=== PATIENT | female | born 1945 | race Caucasian/White ===

== ENCOUNTER 2017-12-05 09:09 | Outpatient (CLI) | payer MEDICARE, BC ==
--- NOTE | 2017-12-05 18:49 | HP ---
DATE OF SERVICE: 12/05/2017. HISTORY OF PRESENT ILLNESS: Ms. Carmela Hatfield is a very pleasant 72-year-old, who [facility] a lesion of the right hip. The patient states that the right hip lesion has been present since 11/07/2017. The patient states that she was admitted to the hospital for [facility] on 11/06/2017. She states that the following day she noted the presence of a "pimple" over he r right hip which had "a hole in the middle of it." The patient states that she had been receiving a ntibiotics for pneumonia since 10/18/2017. She states that when she was discharged from the hospital , she finished courses of 2 different antibiotics as prescribed. She states that she was then placed on a 10-day course of clindamycin by her primary care physician, Dr. Schuster. The patient states that s he was seen by Dr. Schuster on 11/26/2017 for a followup visit after her discharge from the hospital for p ruddyia. At this time, the patient was referred to [facility] for further evaluation and devon tment of the right hip lesion. The patient states that the lesion has markedly improved in its appea vicki after she began leaving the lesion open to air. PAST MEDICAL HISTORY: 1. Atrial fibrillation. 2. Diabetes mellitus. 3. History of chronic kidney disease. 4. Osteoarthritis. 5. Hypothyroidism. 6. Chronic obstructive pulmonary disease. PAST SURGICAL HISTORY: 1. Left knee replacement. 2. Right knee replacement. 3. Left ankle fusion. 4. Neck surgery. 5. Left shoulder surgery. MEDICATIONS: 1. Eliquis. 2. Colchicine. 3. Cardizem. 4. Lasix. 5. Crestor. 6. Zanaflex. 7. Diovan. 8. Mirapex. 9. Metformin. 10. Restasis. 11. Symbicort. 12. Albuterol. ALLERGIES: GABAPENTIN, ADHESIVES. SOCIAL HISTORY: Social history is significant for tobacco use of up to 2 packs of cigarettes per day for 18 years. The patient states she stopped smoking in 2005. The patient denies any history of ET OH use. FAMILY HISTORY: Family history is significant for coronary artery disease. The patient states that her mother was diagnosed with coronary artery disease. Family history is negative for diabetes ingrid malone. PHYSICAL EXAMINATION: VITAL SIGNS: Temperature 97.3, pulse 88, respirations 20, blood pressure 154/70. Accu-Chek 130. GENERAL: A 72-year-old female sitting on table in examination room in no acute distress. HEENT: Normocephalic, atraumatic. NECK: No nuchal rigidity. CHEST: Clear to auscultation. CARDIAC: Regular rate and rhythm. ABDOMEN: Soft. EXTREMITIES: A lesion of the right hip is present, which measures approximately 1.2 x 0.5 cm. No op en wound is present on exam today. Erythema of the skin surrounding the lesion is present, which is resolving. No maceration of the skin of the periwound is noted. ASSESSMENT AND PLAN: 1. Right hip lesion as described above. The erythema surrounding the lesion is resolving, and the p atient has been reassured that no open wound of the right hip is present. No dressing changes or ant ibiotics will be prescribed today. The patient understands and is in agreement with the preceding tr eatment plan. Ms. Hatfield will be discharged from clinic today with followup on a p.r.n. basis. The p atient has been instructed to continue to keep the right hip lesion clean and dry. 2. Atrial fibrillation. 3. Diabetes mellitus. The patient's Accu-Chek in clinic today is 130. 4. History of chronic kidney disease. 5. Osteoarthritis. 6. Hypothyroidism. 7. Chronic obstructive pulmonary disease.
== END 2017-12-05 09:10 | disposition home or self-care (01) ==
LOC: WCC 09:09
PROVIDERS: ATTEND Family Medicine
DX: L98.9 Disorder of the skin and subcutaneous tissue, unspecified (principal); I48.91 Unspecified atrial fibrillation; E11.22 Type 2 diabetes mellitus with diabetic chronic kidney disease; N18.9 Chronic kidney disease, unspecified; M19.90 Unspecified osteoarthritis, unspecified site; E03.9 Hypothyroidism, unspecified; J44.9 Chronic obstructive pulmonary disease, unspecified
CPT/HCPCS: 82962; 97139; G0463; 36416; 99203

== ENCOUNTER 2018-07-05 16:53 | Emergency (ER) | payer MEDICARE, BC ==
[2018-07-05 17:36] LABS: #Basophils 0.1 thou/uL (0.0-0.2); #Eosinphils 0.2 thou/uL (0.0-0.7); #Lymphocytes 1.4 thou/uL (1.20-3.40); #Monocytes 0.5 thou/uL (0.11-0.59); #Neutrophils 1.9 thou/uL (1.40-6.50); %Basophils 1.5 % (0.0-1.0); %Eosinophils 4.5 % (0.0-10.0); %Lymphocytes 34.6 % (21.0-51.0); %Monocytes 11.5 % (0.0-10.0); %Neutrophils 47.9 % (42.0-75.0); Hemoglobin 13.6 g/dL (12.0-16.0); Mean Corpuscular HGB CONC 34.7 g/dL (32.0-36.0); Mean Corpuscular Hemoglobin 30.4 pg (27.0-31.0); Mean Corpuscular Volume 87.7 fL (78.0-98.0); Platelet Count 144 thou/uL (130-400); RBC Distribution Width 12.6 % (11.5-14.5); Red Blood Cell (RBC) Count 4.46 mill/uL (4.20-5.40)
[2018-07-05 17:45] LABS: Anion Gap 16 mmol/L (10-20); BUN (Urea Nitrogen) 33 mg/dL (9.8-20.1); Calc. Creatinine Clearance 0 mL/min (70-130); Calcium 10.2 mg/dL (7.8-10.44); Carbon Dioxide 26 mmol/L (23-31); Chloride 101 mmol/L (98-107); Estimated GFR-MDRD 58; Glucose 118 mg/dL (83-110); Potassium 4.1 mmol/L (3.5-5.1); Sodium 139 mmol/L (136-145)
--- NOTE | 2018-07-05 18:47 | ULT ---
BILATERAL LOWER EXTREMITY VENOUS DOPPLER WITH SPECTRAL ANALYSIS AND COLOR FLOW EVALUATION: 07/05/18 HISTORY: Bilateral lower extremity redness and swelling. FINDINGS: Powell scale, color flow, doppler evaluation with spectral analysis of the bilateral lower extremity ve nous structures is performed with 2D imaging. The bilateral lower extremity, common femoral, superfic ial femoral, popliteal, posterior tibial, most proximal greater saphenous and profunda femoral veins are imaged. There is normal lumen compressibility, flow, and augmentation in the visualized deep venous structure s of the bilateral lower extremities. There is subcutaneous edema seen in the distal lower extremiti es bilaterally. IMPRESSION: 1. No evidence of a DVT involving the visualized deep venous structures of bilateral lower extre mities. 2. Subcutaneous edema distal bilateral lower extremities. POS: [facility]
== END 2018-07-05 18:50 | disposition home or self-care (01) ==
LOC: SCSER 16:53
DX: R60.0 Localized edema (principal); I48.91 Unspecified atrial fibrillation; E11.9 Type 2 diabetes mellitus without complications; E78.5 Hyperlipidemia, unspecified; I10 Essential (primary) hypertension; E66.9 Obesity, unspecified; J45.909 Unspecified asthma, uncomplicated; M10.9 Gout, unspecified
CPT/HCPCS: 36415; 80048; 85025; 93970

== ENCOUNTER 2020-08-05 11:36 | Outpatient (CLI) | payer MEDICARE, BC ==
--- NOTE | 2020-08-05 13:04 | MRI ---
MRI of thecervical spine: 08/05/2020 COMPARISON:None available HISTORY:History of neck surgery, neck pain and shoulder pain TECHNIQUE: Multiplanar multisequence MR imaging of thecervical spine without contrast Findings:Hardware artifact associated with prior anterior discectomy and fusion noted at C5-6 and C6- 7. There is degenerative change at the atlantoaxial interspace. C2-3: Mild disc bulge with no significant central canal stenosis. Moderate left neural foraminal sten osis on the basis of facet and uncovertebral osteophyte formation. No right neural foraminal stenosis. C3-4: There is disc space narrowing with degenerative endplate change. A disc osteophyte complex is p resent which effaces the ventral thecal sac and abuts the ventral aspect of the cord with moderate/severe central canal stenosis. Mild right neural foraminal stenosis and moderate/severe left neural foraminal stenosis noted with left-sided facet and uncovertebral osteophyte formation. C4-5: There is disc space narrowing with disc desiccation and mild disc bulge partially effacing the ventral thecal sac and leading to mild to central canal stenosis. Mild bilateral neural foraminal stenosis. C5-6: There is disc space narrowing with a disc osteophyte complex. There is no significant central c anal stenosis. Facet and uncovertebral osteophyte formation leads to moderate bilateral neural foraminal stenosis, right greater than left. C6-7: No central canal stenosis. Moderate left neural foraminal stenosis on the basis of facet and un covertebral osteophyte formation. No significant right neural foraminal stenosis. Posterior to the C6-7 interspace there is a tiny focus of decreased signal intensity within the ventr al aspect of the thecal sac which may signify artifact on the basis of postoperative change. C7-T1: Bilateral facet hypertrophy. Mild bilateral neural foraminal stenosis, right greater than left . No central canal stenosis. No focal area of abnormal signal intensity within the cervical cord. IMPRESSION:Degenerative and postoperative changes within the cervical spine as detailed above. Most s ignificant degenerative changes are noted at the C3-4 level, and to a lesser degree, the C4-5 level.
--- NOTE | 2020-08-05 13:11 | MRI ---
MRI LUMBAR SPINE NONCONTRAST: HISTORY: Low back pain. Right back pain, right ankle pain. COMPARISON: None. FINDINGS: Overall there is appropriate T1 marrow signal intensity of the lumbar vertebrae. Lumbar spine vertebr al body heights are maintained. There is no fracture. There are type I and type II Modic changes at T11-T12, T12-L1, L3-L4 and L4-L5. There are Schmorl's nodes involving the superior and inferior endpl ate of L3, superior endplate of L4 and superior plate of L5. There is no significant STIR hyperintensity to suggest vertebral body fractures or ligamentous injury . There is bilateral facet hypertrophy at L3-L4, L4-L5 and L5-S1. There is fluid involving the left and right facet joints at those levels suggesting hypertrophic changes. Spondylolisthesis: L3-L4: 3.3 mm of anterolisthesis. L4-L5: 6.9 mm of retrolisthesis. L5-S1: 5.1 mm of anterolisthesis. T12-L1:Desiccation with severe loss of disc space height. Broad-based disc bulge. Mild central canal stenosis. Moderate bilateral neural foraminal narrowing. L1-L2:Adequate disc hydration. No posterior disc abnormalities. No significant central canal stenosis . Mild bilateral neural foraminal narrowing. L2-L3:Disc desiccation with moderate loss of disc space height. Broad-based disc bulge, ligament flav um thickening and facet hypertrophy with mild central canal stenosis. Narrowing of the right subarticular zone without obscuration of the traversing right L3 nerve root. Moderate right and mild- to-moderate left neural foraminal narrowing. L3-L4:Disc desiccation without significant loss of disc space height. Broad-based disc bulge, ligamen t flavum thickening and facet hypertrophy. Moderate central canal stenosis. Narrowing of bilateral subarticular zones. Partial obscuration of the traversing right L4 nerve root. Moderate to severe rig ht and moderate left neural foraminal narrowing. L4-L5:Disc desiccation with moderate loss of disc space height. Broad-based disc bulge, ligament flav um thickening and facet hypertrophy. Moderate central canal stenosis. Severe right and moderate left foraminal narrowing. L5-S1:Disc desiccation without significant loss of disc space height. There appears to be a posterior annular fissure. Mild central canal stenosis. 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 IMPRESSION: Multilevel degenerative changes lumbar spine as described above. Transcribed Date/Time: 08/05/2020 1:25 PM
--- NOTE | 2020-08-05 13:33 | RAD ---
3 views cervical spine: 08/05/2020 HISTORY: Cervical disc degeneration FINDINGS: Incompletely imaged transvenous pacing leads are present. Anterior discectomy and fusion brooks rdware is present at the C5-6/C6-7 level. There is disc space narrowing with degenerative endplate change as well as anterior and posterior osteophyte at C3-4. At C4-5 there is disc space narrowing wi th degenerative endplate change and anterior osteophyte formation as well. No prevertebral soft tissue swelling. IMPRESSION: Anterior discectomy and fusion hardware as above. Significant degenerative change noted a t C3-4, and to a lesser degree, C4-5.
== END 2020-08-05 11:37 | disposition home or self-care (01) ==
LOC: MRI 11:36
PROVIDERS: ATTEND Neurological Surgery
DX: M50.30 Other cervical disc degeneration, unspecified cervical region (principal); M54.5 Low back pain; M47.812 Spondylosis without myelopathy or radiculopathy, cervical region; M47.816 Spondylosis without myelopathy or radiculopathy, lumbar region; Z98.890 Other specified postprocedural states; Z98.1 Arthrodesis status
CPT/HCPCS: 72040; 72141; 72148

== ENCOUNTER 2020-10-28 09:43 | Outpatient (CLI) | payer MEDICARE, BC ==
--- NOTE | 2020-10-28 10:59 | RAD ---
CERVICAL SPINE 2 VUEWS: HISTORY: Cervical radiculopathy. COMPARISON: Radiographs 08/05/2020. FINDINGS: Removal of the C5-C7 ACDF and plate with new C3-C5 ACDF plate with diskectomy change at C3-4 and C4-5 diskectomy cage. The cages at C5-6 and C6-7 are intact. No displacement of diskectomy cage. Impro jd height of the cervical spine. IMPRESSION: 1. Satisfactory postoperative appearance. 2. Absent left-sided anterior C3 screw. POS: [facility]
== END 2020-10-28 09:44 | disposition home or self-care (01) ==
LOC: TBSIIMAG 09:43
PROVIDERS: ATTEND Neurological Surgery
DX: M47.12 Other spondylosis with myelopathy, cervical region (principal); Z98.1 Arthrodesis status
CPT/HCPCS: 72040

== ENCOUNTER 2021-02-23 13:00 | Outpatient (CLI) | payer MEDICARE, BC | END 2021-02-23 13:01 | disposition home or self-care (01) | LOC: TBSIIMAG 13:00 | PROVIDERS: ATTEND Neurological Surgery | DX: M43.16 Spondylolisthesis, lumbar region (principal); Z98.890 Other specified postprocedural states | CPT/HCPCS: 72100 ==

== ENCOUNTER 2022-06-14 10:41 | Outpatient (CLI) | payer MEDICARE, BC | END 2022-06-14 10:42 | disposition home or self-care (01) | LOC: NM 10:41 | PROVIDERS: ATTEND Physician Assistant | DX: Z47.1 Aftercare following joint replacement surgery (principal); Z96.651 Presence of right artificial knee joint | CPT/HCPCS: 78315; A9503 ==

== ENCOUNTER 2023-07-09 08:00 | Outpatient (CLI) | payer MEDICARE, BC | END 2023-07-09 08:01 | disposition home or self-care (01) | LOC: NM 08:00 | PROVIDERS: ATTEND Internal Medicine Rheumatology | DX: E21.3 Hyperparathyroidism, unspecified (principal) | CPT/HCPCS: 78072; A9500 ==

== ENCOUNTER 2024-01-11 10:21 | Outpatient (CLI) | payer MEDICARE, BC ==
[2024-01-11 11:31] LABS: Hematocrit 38.1 % (34.9-44.5); Hemoglobin 12.5 g/dL (12.0-15.5); Mean Corpuscular HGB CONC 32.8 g/dL (32.0-36.0); Mean Corpuscular Hemoglobin 32.1 pg (27.0-33.0); Mean Corpuscular Volume 97.9 fl (81.6-98.3); Mean Platelet Volume 10.1 fl (7.4-10.4); Platelet Count 159 10x3/uL (150-450); RBC Distribution Width 14.1 % (11.5-14.5); Red Blood Cell (RBC) Count 3.89 10x6/uL (3.90-5.03); White Blood Cell (WBC) Count 3.9 10x3/uL (3.5-10.5)
[2024-01-11 11:41] LABS: Prothrombin Time 10.7 sec (9.5-12.1)
[2024-01-11 11:52] LABS: SARS-CoV-2 E Target Negative; SARS-CoV-2 N2 Target Negative; SARS-CoV-2 NAA Rapid Test Not Detected (NotDetected); SARS-CoV-2 RdRP gene Negative
[2024-01-11 11:53] LABS: ALT (SGPT) 14 U/L (8-55); AST (SGOT) 30 U/L (5-34); Albumin 4.1 g/dL (3.4-4.8); Alkaline Phosphatase 101 U/L (40-110); Anion Gap 11 mmol/L (10-20); BUN (Urea Nitrogen) 34 mg/dL (9.8-20.1); Bilirubin, Total 0.4 mg/dL (0.2-1.2); Calc. Creatinine Clearance 0 mL/min (70-130); Calcium 9.3 mg/dL (7.8-10.44); Carbon Dioxide 29 mmol/L (23-31); Chloride 105 mmol/L (98-107); Estimated GFR 65; Globulin 2.3 g/dL (2.4-3.5); Glucose 104 mg/dL (83-110); Potassium 4.4 mmol/L (3.5-5.1); Protein, Total 6.4 g/dL (5.8-8.1); Sodium 141 mmol/L (136-145)
== END 2024-01-11 10:22 | disposition home or self-care (01) ==
LOC: LABBT 10:21
PROVIDERS: ATTEND Internal Medicine Cardiovascular Disease
DX: Z01.812 Encounter for preprocedural laboratory examination (principal); I48.19 Other persistent atrial fibrillation
CPT/HCPCS: 80053; 85027; 85610; U0002